=== PATIENT | male | born 1975 | race Caucasian/White ===

== ENCOUNTER 2020-05-18 13:21 | Emergency (ER) | payer SELFPAY ==
[~2020-05-18] VITALS: Ht 167.6 cm; Wt 87.5 kg
[2020-05-18 13:28] VITALS: Ht 167.6 cm; Wt 87.5 kg
[2020-05-18 14:50] VITALS: BP 128/98
== END 2020-05-18 14:50 | disposition home or self-care (01) ==
LOC: ED 13:21
DX: J06.9 Acute upper respiratory infection, unspecified (principal); Z20.828 Contact with and (suspected) exposure to other viral communicable diseases
CPT/HCPCS: U0003-CS

== ENCOUNTER 2020-08-24 11:29 | Emergency (ER) | payer MEDICAID, SELFPAY ==
[~2020-08-24] VITALS: Ht 167.6 cm; Wt 86.2 kg
[2020-08-24 11:31] VITALS: Ht 167.6 cm; Wt 86.2 kg
[2020-08-24 12:54] VITALS: BP 125/89
== END 2020-08-24 12:55 | disposition home or self-care (01) ==
LOC: ED 11:29
DX: J98.11 Atelectasis (principal); R19.7 Diarrhea, unspecified; Z20.828 Contact with and (suspected) exposure to other viral communicable diseases; Z90.89 Acquired absence of other organs
CPT/HCPCS: 82962; Q0092; U0003